=== PATIENT | male | born 1955 | race Caucasian/White ===

== ENCOUNTER 2018-07-03 07:26 | Day surgery (SDC) | payer BC ==
[2018-07-01 15:35] LABS: BASOPHILS # (AUTO) 0.09 x10^3/uL (0-0.1); BASOPHILS % (AUTO) 1 % (0-1); EOSINOPHILS # (AUTO) 0.21 x10^3/uL (0-0.4); EOSINOPHILS % (AUTO) 3 % (1-7); LYMPHOCYTES # (AUTO) 2.11 x10^3/uL (1-3.4); LYMPHOCYTES % (AUTO) 29 % (22-44); MD NO; MEAN CORPUSCULAR HEMOGLOBIN 32.3 pg (27.5-34.5); MEAN CORPUSCULAR HGB CONC 34.5 g/dL (33.2-36.2); MEAN CORPUSCULAR VOLUME 93.8 fL (81-97); MEAN PLATELET VOLUME 8.4 fL (7.4-10.4); MONOCYTES # (AUTO) 0.85 x10^3/uL (0.2-0.8); MONOCYTES % (AUTO) 12 % (2-9); NEUTROPHILS # (AUTO) 3.94 x10^3/uL (1.8-6.8); NEUTROPHILS % (AUTO) 55 % (42-75); PLATELET COUNT 186 x10^3/uL (130-400); RED BLOOD COUNT 4.54 x10^6/uL (4.38-5.82); RED CELL DISTRIBUTION WIDTH 14.2 % (9.4-14.8)
[2018-07-01 15:47] LABS: ANION GAP 9 mmol/L (5-15); CALCIUM 8.6 mg/dL (8.5-10.1); CHLORIDE 110 mmol/L (98-107); CREATININE 1.51 mg/dL (0.7-1.3)
[~2018-07-03] VITALS: Ht 175.3 cm; Wt 81.8 kg
[~2018-07-03 07:26] MED LIST: ALBU8.5H8 PO; ASPI-496 PO; ATOR40TA PO; BUPR150T73 PO; CLOP75TA PO; FERROUS SULFATE PO; LIDOCAINE-MPF 2%, 2ML ONE; METO25TA91 PO; OXYC-307 PO; PANT20TA3 PO; UMEC1DIS PO; ZOLP10TA PO
[2018-07-03] MEDS ORDERED: SODIUM CHLORIDE 0.9% 1,000 ML IV SCH ×2 (07:51→10:29)
[2018-07-03] MEDS ORDERED: FENTANYL PF 100 MCG/2ML ONE (08:47)
[2018-07-03] MEDS ORDERED: MIDAZOLAM 1 MG/ML, 5ML ONE (08:47)
[2018-07-03] MEDS ORDERED: FLUMAZENIL 0.1 MG/1 ML, 5ML ONE (08:47)
[2018-07-03] MEDS ORDERED: NITROGLYCERIN 5 MG/ML, 10ML ONE (08:48)
[2018-07-03] MEDS ORDERED: HEPARIN 1,000 UNITS/ML, 10ML ONE (08:48)
[2018-07-03] MEDS ORDERED: PROTAMINE SULFATE 10 MG/ML, 25ML ONE (08:48)
[2018-07-03] MEDS ORDERED: ACETAMINOPHEN 650 MG/20.3 ML UDC PO PRN (10:30)
[2018-07-03] MEDS ORDERED: VISIPAQUE 270 MG/ML, 150ML BOTTLE ONE (12:00)
== END 2018-07-03 11:45 | disposition home or self-care (01) ==
LOC: OUT 07:26
PROVIDERS: ATTEND Surgery
DX: I77.1 Stricture of artery (principal); G45.8 Other transient cerebral ischemic attacks and related syndromes; K21.9 Gastro-esophageal reflux disease without esophagitis; F32.9 Major depressive disorder, single episode, unspecified; J43.9 Emphysema, unspecified; E78.5 Hyperlipidemia, unspecified; I10 Essential (primary) hypertension; Z98.890 Other specified postprocedural states; Z95.5 Presence of coronary angioplasty implant and graft; Z79.82 Long term (current) use of aspirin
CPT/HCPCS: 36415; 37236; 75710; 76937; 80048; 85025; 99156; 99157; C1725; C1751; C1769; C1876; C1894; J1644; J2250; J2720; J3010; J3490; Q9966